=== PATIENT | female | born 1965 | race Caucasian/White ===

== ENCOUNTER 2017-03-27 11:09 | Observation (INO) | payer OTHER ==
--- NOTE | 2017-03-27 12:56 | ED PDOC ---
HPI: Back Time Seen by Provider: 03/27/17 11:47 Chief Complaint (Nursing): Back Pain History Per: Patient Additional Complaint(s): Pt. 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 Pt. states she immediately felt pain in the L upper back. Reports pain radiates to her L breast. States 3 years ago she sustained a fracture to her ribs on the L side and has been getting pain to that area intermittently since then. Denies new trauma, SOB, hemoptysis, hx of DVT/PE, leg pain, hemoptysis, recent surgery , palpitations, hormonal therapy. Past Medical History Reviewed: Historical Data, Nursing Documentation, Vital Signs Vital Signs: Last Vital Signs Temp 97.0 F L 03/27/17 11:38 Pulse 85 03/27/17 11:38 Resp 19 03/27/17 11:38 BP 134/78 03/27/17 11:38 Pulse Ox 100 03/27/17 11:38 - Medical History PMH: HTN, Hypercholesterolemia - Family History Family History: States: No Known Family Hx - Home Medications Home Medications: Ambulatory Orders Medication Instructions Recorded Cetirizine HCl [All Day Allergy 10 mg PO HS 03/27/17 Relief] Enalapril Maleate [Vasotec] 5 mg PO DAILY 03/27/17 Fluticasone Nasal [Flonase] 2 spray LAUREN DAILY 03/27/17 Melatonin [Melatonin] 10 mg PO HS 03/27/17 Venlafaxine HCl [Venlafaxine HCl 75 mg PO DAILY 03/27/17 ER] - Allergies Allergies/Adverse Reactions: Allergies Allergy/AdvReac Type Severity Reaction Status Date / Time Penicillins Allergy Mild RASH Verified 12/20/15 10:23 Sulfa (Sulfonamide Allergy RASH Verified 01/05/16 10:14 Antibiotics) hydromorphone HCl AdvReac ANAPHYLAXIS Verified 01/05/16 10:14 [From Dilaudid] Review of Systems ROS Statement: Except As Marked, All Systems Reviewed And Found Negative Musculoskeletal: Positive for: Back Pain Physical Exam - Physical Exam Appears: Positive for: Well, Non-toxic, No Acute Distress Skin: Positive for: Normal Color. Negative for: Rash Cardiovascular/Chest: Positive for: Regular Rate, Rhythm. Negative for: Tachycardia Respiratory: Positive for: Normal Breath Sounds. Negative for: Decreased Breath Sounds, Accessory Muscle Use, Wheezing, Respiratory Distress Gastrointestinal/Abdominal: Positive for: Normal Exam, Soft. Negative for: Tenderness Back: Positive for: Normal Inspection, Muscle Spasm (L parascapular area). Negative for: L CVA Tenderness, R CVA Tenderness, Vertebral Tenderness Extremity: Positive for: Normal ROM Neurologic/Psych: Positive for: Alert, Oriented. Negative for: Aphasia, Facial Droop - Laboratory Results Result Diagrams: 03/27/17 14:30 03/27/17 14:30 - ECG ECG: Positive for: Interpreted By Me ECG Rhythm: Positive for: Sinus Rhythm. Negative for: ST/T Changes Rate: 64 O2 Sat by Pulse Oximetry: 100 - Radiology X-Ray: Interpreted by Me (L rib x-rays) X-Ray Interpretation: Other (6th to 7th rib fx without ptx) - Progress ED Course And Treament: Toradol 15mg IM given. L rib series ordered. EKG ordered. CT chest: Left posterior lateral 6th through 10th acute rib fracture deformities. Small left pleural effusion. Mild bibasilar atelectasis. Labs ordered. Morphine 2mg IV, zofran 4mg IV given. Pt. requesting to be admitted under Dr. Wasserman. Case d/w Dr. Wasserman and arrangements made for 23 hr observation. Requests that Morphine 2mg IV q4h be given. Disposition - Clinical Impression Clinical Impression: Ribs, multiple fractures, Pleural effusion - Disposition Disposition Time: 16:33 Condition: STABLE
--- NOTE | 2017-03-27 13:04 | RAD ---
PROCEDURE: Radiographs of the Chest and Left Ribs. HISTORY: pain COMPARISON: Comparison made with chest and left rib series dated 01/05/2016. TECHNIQUE: Frontal radiograph of the chest and multiple oblique radiographs of the left ribs were obtained. FINDINGS: LEFT RIBS: There are multiple contiguous fractures of the left 6th 7th and 8th posterolateral ribs. . Possible fracture left lateral 9th rib. LUNGS: There is a somewhat lobular radiopaque density along the left lateral pleural surface subjacent to the aforementioned rib fractures that could represent soft tissue edema/swelling and or hemorrhage - hematoma. PLEURA: No definitive pneumothorax. Suspect mild biapical pleural thickening CARDIOVASCULAR: Heart size normal. OTHER FINDINGS: None. IMPRESSION: Fractures of the left 6th 7th and 8th post lateral ribs. Questionable fracture left lateral 9th rib. Probable left lateral subpleural swelling and/or hematoma subjacent to rib lobular radiopaque density along the left lateral pleural surface subjacent to the rib fractures could represent soft tissue edema/swelling or subpleural hematoma/hemorrhage. .
[2017-03-27 14:46] LABS: BASO % 0.5 % (0.0-2.0); EOS # 0.1 K/uL (0.0-0.7); EOS % 1.5 % (0.0-4.0); HEMATOCRIT 38.2 % (34.0-47.0); LYMPH # 1.8 K/uL (1.0-4.3); LYMPH % 20.1 % (20.0-40.0); MEAN CELL VOLUME 97.1 fl (81.0-99.0); MEAN CORPUSCULAR HEMOGLOBIN 33.6 pg (27.0-31.0); MEAN CORPUSCULAR HGB CONC 34.6 g/dL (33.0-37.0); MEAN PLATELET VOLUME 8.4 fl (7.2-11.7); MONO # 0.9 K/uL (0.0-0.8); MONO % 9.9 % (0.0-10.0); NEUT # 6.2 K/uL (1.8-7.0); NRBC % 0.1 % (0.0-0.0); RED CELL DISTRIBUTION WIDTH 13.5 % (11.5-14.5); WHITE BLOOD COUNT 9.1 K/uL (4.8-10.8)
[2017-03-27 14:56] LABS: ALB/GLOB RATIO 1.5 (1.0-2.1); ALKALINE PHOSPHATASE 91 U/L (38-126); ALT/SGPT 41 U/L (9-52); AST/SGOT 41 U/L (14-36); BILIRUBIN,TOTAL 0.6 mg/dl (0.2-1.3); BLOOD UREA NITROGEN 14 mg/dl (7-17); CALCIUM 9.7 mg/dL (8.4-10.2); CARBON DIOXIDE 27 mmol/L (22-30); CHLORIDE 101 mmol/L (98-107); GFR AFRICAN-AMERICAN > 60; GLUCOSE,RANDOM 121 mg/dL (65-105); POTASSIUM 4.4 MMOL/L (3.6-5.0); SODIUM 138 mmol/l (132-148); TOTAL PROTEIN 7.2 G/DL (6.3-8.2)
--- NOTE | 2017-03-27 15:20 | CT ---
CT chest without IV contrast Indication: Possible rib fracture Technique: Contiguous axial images were obtained through the chest without intravenous contrast enhancement. Sagittal and coronal reconstructions were generated and reviewed. This CT exam was performed using 1 or more of the falling dose reduction techniques: Automated exposure control, adjustment of the MAA and/or kV according to patient size, and/or use of iterative reconstruction technique. Radiation dose (DLP): 380.83 MGy-cm. Comparison: Ribs and left chest radiographs performed 03/27/17 Findings: Visualized portions of the inferior thyroid gland appear unremarkable. The noncontrast mediastinal and hilar vascular structures appear grossly unremarkable. The heart appears within normal limits of size. Coronary artery calcifications. 2 mm right upper lobe nodular density (series 3, image 42). Mild bibasilar atelectasis. Small left pleural effusion. No visible pneumothorax. Limited visualization of the noncontrast upper abdomen appears grossly unremarkable. Left 6th through 10th acute rib fracture deformities. Impression: Left posterior lateral 6th through 10th acute rib fracture deformities. Small left pleural effusion. Mild bibasilar atelectasis.
[2017-03-27] MEDS: Calcium-Vit D 500 mg-200 Units Tab UD PO SCH (20:58)
--- NOTE | 2017-03-28 07:09 | HP ---
The patient is a 51-year-old female that was admitted via the Emergency Room because of severe back p ains and chest pains on the day of admission. 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 She has had pain in the left upper back since then. Radiates into the left breast area, but did not think much of it, but showed up in the Emergency Room today and had a scan of the chest area. It revealed multiple fractures of the lef t ribs from rib #6-9. PAST MEDICAL HISTORY: She has a past medical history that is remarkable for fracture on the left wilfrid e (she is unsure of exactly which ribs that was) 3 years ago. She also has a history of hypertension and hyperlipidemia. FAMILY HISTORY: Nonrevealing. SOCIAL HISTORY: She smokes half pack a day for the past many years. Does not drink and does not use drugs. REVIEW OF SYSTEMS: Essentially unremarkable. PHYSICAL EXAMINATION: GENERAL: The patient is alert and oriented, appears to be in moderate distress because of pain, mild relief from IV morphine in the Emergency Room. VITAL SIGNS: Remarkable for blood pressure of 134/78, pulse of 85, respiratory rate of 19, O2 sat 10 0%, she is afebrile. SKIN: Shows fair turgor. HEENT: Pupils equal, react to light and accommodation. Mouth shows fair hygiene. NECK: JVP flat. LUNGS: Clear, but there is chest wall tenderness over the left lateral rib cage. HEART: Regular. No murmurs or gallops. ABDOMEN: Soft, nontender, no organomegaly. EXTREMITIES: Show no edema or cyanosis. RECTAL AND GENITALIA: Deferred. CENTRAL NERVOUS SYSTEM: Grossly intact. LABORATORY DATA: Remarkable for WBC of 9.1, hemoglobin 13.2, platelet count of 235,000. Sodium of 1 38, potassium 4.4, BUN of 14, creatinine 0.8. AST 41, ALT 41. CAT scan of the chest is remarkable for left 6th through 10th acute rib fracture and deformities in t he posterior lateral aspect, small left pleural effusion, mild basilar atelectasis. EKG: Normal sinus rhythm. IMPRESSION: Multiple rib fractures with a small left pleural effusion and severe intractable pain, h istory of hypertension, history of hyperlipidemia. PLAN: Pain management. Oxygen. Would obtain physical therapy evaluation. Further therapy will dep end on findings. Chapo Wasserman MD cc: 62 TT: 03/28/2017 07:08:58 mn
[2017-03-28] MEDS: Calcium-Vit D 500 mg-200 Units Tab UD PO SCH (08:32)
--- NOTE | 2017-03-28 10:00 | CP.PCM.DIS ---
Provider - Provider Date of Admission: 03/27/17 16:32 Attending physician: Chapo Wasserman MD Time Spent in preparation of Discharge (in minutes): 32 Diagnosis - Discharge Diagnosis (1) Pleural effusion Status: Acute (2) Ribs, multiple fractures Status: Acute (3) Back pain Status: Acute (4) Rib pain on left side Status: Acute Hospital Course - Lab Results Lab Results: Most Recent Lab Values WBC 9.1 K/uL (4.8-10.8) D 03/27/17 14:30 RBC 3.94 Mil/uL (3.80-5.20) 03/27/17 14:30 Hgb 13.2 g/dL (12.0-16.0) 03/27/17 14:30 Hct 38.2 % (34.0-47.0) 03/27/17 14:30 MCV 97.1 fl (81.0-99.0) D 03/27/17 14:30 MCH 33.6 pg (27.0-31.0) H 03/27/17 14:30 MCHC 34.6 g/dL (33.0-37.0) 03/27/17 14:30 RDW 13.5 % (11.5-14.5) 03/27/17 14:30 Plt Count 235 K/uL (130-400) 03/27/17 14:30 MPV 8.4 fl (7.2-11.7) 03/27/17 14:30 Neut % (Auto) 68.0 % (50.0-75.0) 03/27/17 14:30 Lymph % (Auto) 20.1 % (20.0-40.0) 03/27/17 14:30 Burt % (Auto) 9.9 % (0.0-10.0) 03/27/17 14:30 Eos % (Auto) 1.5 % (0.0-4.0) 03/27/17 14:30 Baso % (Auto) 0.5 % (0.0-2.0) 03/27/17 14:30 Neut # 6.2 K/uL (1.8-7.0) 03/27/17 14:30 Lymph # 1.8 K/uL (1.0-4.3) 03/27/17 14:30 Burt # 0.9 K/uL (0.0-0.8) H 03/27/17 14:30 Eos # 0.1 K/uL (0.0-0.7) 03/27/17 14:30 Baso # 0.0 K/uL (0.0-0.2) 03/27/17 14:30 Sodium 138 mmol/l (132-148) 03/27/17 14:30 Potassium 4.4 MMOL/L (3.6-5.0) 03/27/17 14:30 Chloride 101 mmol/L (98-107) 03/27/17 14:30 Carbon Dioxide 27 mmol/L (22-30) 03/27/17 14:30 Anion Gap 15 (10-20) 03/27/17 14:30 BUN 14 mg/dl (7-17) 03/27/17 14:30 Creatinine 0.8 mg/dL (0.7-1.2) 03/27/17 14:30 Est GFR ( Amer) > 60 03/27/17 14:30 Est GFR (Non-Af Amer) > 60 03/27/17 14:30 Random Glucose 121 mg/dL (65-105) H 03/27/17 14:30 Calcium 9.7 mg/dL (8.4-10.2) 03/27/17 14:30 Total Bilirubin 0.6 mg/dl (0.2-1.3) 03/27/17 14:30 AST 41 U/L (14-36) H D 03/27/17 14:30 ALT 41 U/L (9-52) 03/27/17 14:30 Alkaline Phosphatase 91 U/L (38-126) 03/27/17 14:30 Total Protein 7.2 G/DL (6.3-8.2) 03/27/17 14:30 Albumin 4.3 g/dL (3.5-5.0) 03/27/17 14:30 Globulin 2.9 gm/dL (2.2-3.9) 03/27/17 14:30 Albumin/Globulin Ratio 1.5 (1.0-2.1) 03/27/17 14:30 - Hospital Course Hospital Course: rib pains less no shortness of breath Discharge Exam - Head Exam Head Exam: ATRAUMATIC, NORMAL INSPECTION, NORMOCEPHALIC - Eye Exam Eye Exam: EOMI, Normal appearance, PERRL Pupil Exam: NORMAL ACCOMODATION, PERRL - GI/Abdominal Exam GI & Abdominal Exam: Normal Bowel Sounds - Rectal Exam Rectal Exam: NORMAL INSPECTION - Neurological Exam Neurological exam: Alert, CN II-XII Intact, Normal Gait, Oriented x3, Reflexes Normal - Psychiatric Exam Psychiatric exam: Normal Affect, Normal Mood - Skin Skin Exam: Dry, Intact, Normal Color, Warm Discharge Plan - Follow Up Plan Condition: STABLE Disposition: HOME/ ROUTINE Patient education suggested?: Yes Additional Instructions: d/c home today follow up with pain management and physical rx
--- NOTE | 2017-03-28 11:26 | RAD ---
HISTORY: chest pain COMPARISON: Comparison made with chest radiograph and CT scan chest both dated 03/27/2017. . TECHNIQUE: Chest PA and lateral FINDINGS: LUNGS: Re- demonstrated is lobulated area of chronic pleural thickening along the left lateral parker thorax subjacent to multilevel chronic rib fracture deformities. No evidence of pneumothorax. PLEURA: As above. CARDIOVASCULAR: Normal. OSSEOUS STRUCTURES: No significant abnormalities. VISUALIZED UPPER ABDOMEN: Normal. OTHER FINDINGS: None. IMPRESSION: Re- demonstrated is lobulated area of chronic pleural thickening along the left lateral parker thorax subjacent to multilevel chronic rib fracture deformities. No evidence of pneumothorax.
[2017-03-28 16:14] VITALS: BP 130/81; PULSE 72; RESP 18; TEMP 97.7; O2SAT 98
--- NOTE | 2017-03-30 19:07 | CARD ---
APPROVED REPORT EKG Measurement Heart [id number] <Conclusion> Normal sinus rhythm Normal ECG
== END 2017-03-28 17:32 | disposition home or self-care (01) ==
LOC: H.ER 11:09 → H.ERHOLD 16:32 → H.MEDSURG1 18:12
PROVIDERS: ADMIT Internal Medicine Pulmonary Disease; ATTEND Internal Medicine Pulmonary Disease
DX: S22.42XA Multiple fractures of ribs, left side, initial encounter for closed fracture (principal); I10 Essential (primary) hypertension; E78.5 Hyperlipidemia, unspecified; J90 Pleural effusion, not elsewhere classified; F17.210 Nicotine dependence, cigarettes, uncomplicated; E78.00 Pure hypercholesterolemia, unspecified; X50.0XXA Overexertion from strenuous movement or load, initial encounter; X50.9XXA Other and unspecified overexertion or strenuous movements or postures, initial encounter; Y92.9 Unspecified place or not applicable; Y99.9 Unspecified external cause status

== ENCOUNTER 2017-04-27 10:21 | Emergency (ER) | payer OTHER ==
[2017-04-27 10:32] VITALS: RESP 18; TEMP 97
--- NOTE | 2017-04-27 10:52 | RAD ---
HISTORY: h/o pneumothorax COMPARISON: Chest x-ray performed 03/28/17, CT of the chest without contrast performed 03/27/17 TECHNIQUE: Chest PA and lateral FINDINGS: LUNGS: Mild biapical pleural thickening. No focal consolidation. Please note that chest x-ray has limited sensitivity for the detection of pulmonary masses. PLEURA: No significant pleural effusion identified. No definite pneumothorax . CARDIOVASCULAR: The cardiomediastinal silhouette appears within normal limits of size. OSSEOUS STRUCTURES: Chronic left rib fracture deformities re-identified. VISUALIZED UPPER ABDOMEN: Unremarkable. OTHER FINDINGS: None. IMPRESSION: Mild biapical pleural thickening. Multilevel chronic left-sided rib fracture deformities. No definite pneumothorax identified.
[2017-04-27] MEDS ORDERED: Naproxen 500 MG TAB PO STA (10:59)
--- NOTE | 2017-04-27 11:05 | ED PDOC ---
Upper Extremity Pain/Injury Time Seen by Provider: 04/27/17 10:28 Chief Complaint (Nursing): Upper Extremity Problem/Injury Chief Complaint (Provider): Upper Extremity problem/injury History Per: Patient History/Exam Limitations: no limitations Onset/Duration Of Symptoms: Days (x1) Additional Complaint(s): Janeen Denis, 51 year old female presents to the ED on 04/27/17 for left posterior rib pain. The patient states the pain worsens on expiration. She reports that the pain started last night after lifting something and coughing. She denies any shortness of breath. The patient has a past medical history inclsive of pneumothorax and hypertension. Past Medical History Reviewed: Historical Data, Nursing Documentation Vital Signs: Last Vital Signs Temp 97 F L 04/27/17 10:29 Pulse 86 04/27/17 10:29 Resp 18 04/27/17 10:29 BP 117/80 04/27/17 10:29 Pulse Ox 100 04/27/17 10:29 - Medical History PMH: HTN, Hypercholesterolemia, Pneumothorax - Surgical History Surgical History: Appendectomy, Tonsillectomy - Family History Family History: States: Unknown Family Hx - Home Medications Home Medications: Ambulatory Orders Medication Instructions Recorded Cetirizine HCl [All Day Allergy 10 mg PO HS 03/27/17 Relief] Enalapril Maleate [Vasotec] 5 mg PO DAILY 03/27/17 Fluticasone Nasal [Flonase] 2 spray LAUREN DAILY 03/27/17 Melatonin 10 mg PO HS 03/27/17 Venlafaxine HCl [Venlafaxine HCl 75 mg PO DAILY 03/27/17 ER] Calcium/Vitamin D [Oyster Shell 1 tab PO BIDWM tab 03/28/17 Calcium/Vitamin D 500 mg-200 IU] oxyCODONE/Acetaminophen [Percocet 1 ea PO Q6 #20 tab 03/28/17 5/325 mg Tab] Cyclobenzaprine [Cyclobenzaprine 10 mg PO TID #10 tab 04/27/17 HCl] Naproxen [Naprosyn] 500 mg PO Q12H #20 tab 04/27/17 - Allergies Allergies/Adverse Reactions: Allergies Allergy/AdvReac Type Severity Reaction Status Date / Time Penicillins Allergy Mild RASH Verified 04/27/17 10:29 Sulfa (Sulfonamide Allergy RASH Verified 04/27/17 10:29 Antibiotics) hydromorphone HCl AdvReac ANAPHYLAXIS Verified 04/27/17 10:29 [From Dilaudid] Review of Systems ROS Statement: Except As Marked, All Systems Reviewed And Found Negative Respiratory: Negative for: Shortness of Breath Musculoskeletal: Positive for: Other (posterior left rib pain ) Physical Exam - Reviewed Nursing Documentation Reviewed: Yes Vital Signs Reviewed: Yes - Physical Exam Appears: Positive for: Non-toxic, No Acute Distress Head Exam: Positive for: ATRAUMATIC, NORMOCEPHALIC Cardiovascular/Chest: Positive for: Regular Rate, Rhythm Respiratory: Positive for: Normal Breath Sounds (equal breath sounds bilaterally ) Back: Positive for: Other (mild tenderness to posterior ribs) Neurologic/Psych: Positive for: Alert, Oriented (x3) - ECG O2 Sat by Pulse Oximetry: 100 (RA) Pulse Ox Interpretation: Normal Medical Decision Making Medical Decision Making: Initial Impression: left posterior rib pain Initial Plan: * ED Urine (POC) Stat * ED Urine Dipstick (POC) Stat * Chest Two Views (PA/LAT) [RAD] Stat * Flexeril 10 mg PO Stat * Naprosyn Tab 500 mg PO Stat * Reevaluation Scribe Attestation: Documented by Eden Molina, acting as a scribe for Eugene Avalos MD. Provider Scribe Attestation: All medical record entries made by the Scribe were at my direction and personally dictated by me. I have reviewed the chart and agree that the record accurately reflects my personal performance of the history, physical exam, medical decision making, and the department course for this patient. I have also personally directed, reviewed, and agree with the discharge instructions and disposition. Disposition - Clinical Impression Clinical Impression: Rib pain - Patient ED Disposition Is Patient to be Admitted: No Counseled Patient/Family Regarding: Studies Performed, Diagnosis, Need For Followup, Rx Given - Disposition Disposition: Routine/Home Disposition Time: 11:10 Condition: FAIR Prescriptions: Cyclobenzaprine [Cyclobenzaprine HCl] 10 mg PO TID #10 tab Naproxen [Naprosyn] 500 mg PO Q12H #20 tab Instructions: Muscle Strain (ED)
[2017-04-27 11:59] VITALS: BP 128/72; PULSE 72; O2SAT 98
== END 2017-04-27 11:59 | disposition home or self-care (01) ==
LOC: H.ER 10:21
DX: R07.81 Pleurodynia (principal)